=== PATIENT | male | born 1945 | race Caucasian/White ===

== ENCOUNTER 2019-12-22 20:06 | Observation (INO) ==
[2019-12-22] MEDS ORDERED: 0.9 % Sodium Chloride 1,000 ML IVC ONE (20:19)
[2019-12-22] MEDS ORDERED: 0.9 % Sodium Chloride 500 ML IVC ONE (20:28)
[2019-12-22] MEDS ORDERED: Ondansetron 4 MG/2 ML VIAL IVP ONE (20:29)
[2019-12-22 20:41] LABS: Basophils % 0.5 %; Eosinophils # 0.2 K/mcL (0.0-0.6); Eosinophils % 2.5 %; Hematocrit 33.8 % (37.5-50.1); Hemoglobin 10.7 g/dL (12.9-16.9); Immature Granulocytes % 0.3 % (0-4); Lymphocytes # 0.9 K/mcL (0.6-4.6); Lymphocytes % 11.7 %; Mean Corpuscular HGB Conc 31.7 g/dL (31.6-35.5); Mean Corpuscular Hemoglobin 31.5 pg (28.0-33.3); Mean Corpuscular Volume 99.4 fL (83.0-100.0); Mean Platelet Volume 11.7 fL (9.4-12.4); Monocytes # 0.8 K/mcL (0.0-1.3); Monocytes % 10.6 %; Neutrophils # 5.5 K/mcL (1.6-8.9); Platelet Count 151 K/mcL (140-400); Red Cell Distribution Width 13.4 % (11.5-14.5); Segmented Neutrophils % 74.4 %; White Blood Count 7.3 K/mcL (4.3-11.1)
[2019-12-22 21:03] LABS: BUN/Creatinine Ratio 21 (6-26); Blood Urea Nitrogen 21 mg/dL (8-23); Calcium 9.2 mg/dL (8.6-10.3); Carbon Dioxide 25 mEq/L (23-29); Chloride 106 mEq/L (98-107); Glucose 100 mg/dL (70-105); Osmolality,Calculated 287 (280-300); Potassium 4.4 mEq/L (3.5-5.1); Sodium 137 mEq/L (136-145); eGFR For African Americans > 60 (> 60); eGFR For Non-African Americans > 60 (> 60)
[2019-12-22 21:44] LABS: Bilirubin,Urine Negative (Negative); Blood,Urine Negative (Negative); Clarity,Urine Clear (Clear); Color,Urine Yellow (Yellow); Glucose,Urine (UA) Normal (Normal); Ketones,Urine Negative (Negative); Leukocyte Esterase,Urine Negative (Negative); Nitrite,Urine Negative (Negative); PH,Urine 6.5 pH Units (5.0-8.0); Protein,Urine Negative (Neg-Trace); Specific Gravity,Urine 1.022 (1.010-1.025); Urobilinogen,Urine Normal (Normal)
[2019-12-22] MEDS ORDERED: Aspirin 325 MG TABLET PO ONE (22:10)
[2019-12-22 22:15] LABS: INR 3.1; Prothrombin Time 35.2 Seconds (9.4-12.1)
[2019-12-23] MEDS ORDERED: Ondansetron ODT 4 MG TAB.RAPDIS SL PRN (00:40)
[2019-12-23] MEDS ORDERED: Naloxone 0.4 MG/ML INJ IVP PRN (00:40)
[2019-12-23] MEDS ORDERED: Acetaminophen 325 MG TABLET PO PRN (00:40)
[2019-12-23 02:12] LABS: Hemoglobin 10.4 g/dL (12.9-16.9); Mean Platelet Volume 11.3 fL (9.4-12.4); Red Cell Distribution Width 13.2 % (11.5-14.5)
[2019-12-23 02:14] LABS: Basophils % 0.2 %; Eosinophils # 0.2 K/mcL (0.0-0.6); Eosinophils % 2.2 %; Hematocrit 33.2 % (37.5-50.1); Immature Granulocytes % 0.5 % (0-4); Immature Platelets 5.8 % (1.1-6.1); Lymphocytes # 0.8 K/mcL (0.6-4.6); Mean Corpuscular HGB Conc 31.3 g/dL (31.6-35.5); Mean Corpuscular Hemoglobin 31.3 pg (28.0-33.3); Monocytes # 0.7 K/mcL (0.0-1.3); Monocytes % 8.5 %; Neutrophils # 6.6 K/mcL (1.6-8.9); Platelet Count 133 K/mcL (140-400); Red Blood Count 3.32 M/mcL (4.19-5.50); Segmented Neutrophils % 78.6 %; White Blood Count 8.4 K/mcL (4.3-11.1)
[2019-12-23 02:16] LABS: INR 3.5; Prothrombin Time 39.6 Seconds (9.4-12.1)
[2019-12-23 02:31] LABS: % Iron Saturation 9 % (20-55); BUN/Creatinine Ratio 21 (6-26); Blood Urea Nitrogen 20 mg/dL (8-23); Calcium 8.5 mg/dL (8.6-10.3); Carbon Dioxide 26 mEq/L (23-29); Chloride 106 mEq/L (98-107); Glucose 95 mg/dL (70-105); Iron 21 mcg/dL (65-175); Magnesium 2.1 mg/dL (1.6-2.6); Osmolality,Calculated 286 (280-300); Phosphorous 3.7 mg/dL (2.7-4.5); Potassium 4.4 mEq/L (3.5-5.1); Sodium 137 mEq/L (136-145); Transferrin 160 mg/dL (203-362); eGFR For African Americans > 60 (> 60); eGFR For Non-African Americans > 60 (> 60)
[2019-12-23] MEDS ORDERED: carvediloL 6.25 MG TABLET PO SCH (08:00)
[2019-12-23] MEDS: Aspirin 81 MG TAB.CHEW PO SCH (08:20)
[2019-12-23] MEDS: Spironolactone 25 MG TABLET PO SCH (08:20)
[2019-12-23] MEDS: FLUoxetine 20 MG CAPSULE PO SCH (08:20)
[2019-12-23] MEDS: Furosemide 40 MG/4 ML VIAL IVP SCH ×2 (15:21→21:55)
[2019-12-23] MEDS ORDERED: *HR* Warfarin 5 MG TABLET PO SCH (18:00)
[2019-12-23] MEDS ORDERED: Warfarin perPT PO PRN (18:00)
[2019-12-23] MEDS: carvediloL 6.25 MG TABLET PO SCH (21:55)
[2019-12-24 02:20] LABS: Basophils % 0.3 %; Eosinophils # 0.2 K/mcL (0.0-0.6); Eosinophils % 2.9 %; Hematocrit 37.1 % (37.5-50.1); Hemoglobin 11.7 g/dL (12.9-16.9); Immature Granulocytes % 0.3 % (0-4); Lymphocytes # 0.9 K/mcL (0.6-4.6); Lymphocytes % 11.9 %; Mean Corpuscular HGB Conc 31.5 g/dL (31.6-35.5); Mean Corpuscular Hemoglobin 31.4 pg (28.0-33.3); Mean Corpuscular Volume 99.5 fL (83.0-100.0); Mean Platelet Volume 11.5 fL (9.4-12.4); Monocytes # 0.8 K/mcL (0.0-1.3); Monocytes % 11.1 %; Neutrophils # 5.4 K/mcL (1.6-8.9); Platelet Count 141 K/mcL (140-400); Red Blood Count 3.73 M/mcL (4.19-5.50); Red Cell Distribution Width 13.1 % (11.5-14.5); Segmented Neutrophils % 73.5 %; White Blood Count 7.3 K/mcL (4.3-11.1)
[2019-12-24 02:26] LABS: INR 3.1; Prothrombin Time 34.9 Seconds (9.4-12.1)
[2019-12-24 02:41] LABS: BUN/Creatinine Ratio 24 (6-26); Blood Urea Nitrogen 23 mg/dL (8-23); Calcium 9.4 mg/dL (8.6-10.3); Carbon Dioxide 28 mEq/L (23-29); Chloride 102 mEq/L (98-107); Glucose 91 mg/dL (70-105); Osmolality,Calculated 289 (280-300); Sodium 138 mEq/L (136-145); eGFR For African Americans > 60 (> 60); eGFR For Non-African Americans > 60 (> 60)
[2019-12-24] MEDS: carvediloL 6.25 MG TABLET PO SCH (07:22)
[2019-12-24] MEDS: FLUoxetine 20 MG CAPSULE PO SCH (07:22)
[2019-12-24] MEDS: Spironolactone 25 MG TABLET PO SCH (07:22)
[2019-12-24] MEDS: Aspirin 81 MG TAB.CHEW PO SCH (07:23)
[2019-12-24] MEDS: Furosemide 40 MG/4 ML VIAL IVP SCH (07:23)
[2019-12-24 11:19] VITALS: BP 103/64
[2019-12-24] MEDS ORDERED: *HR* Warfarin 7.5 MG TABLET PO ONE (18:00)
[2019-12-25] MEDS ORDERED: Furosemide 20 MG TABLET PO SCH (09:00)
== END 2019-12-24 13:18 | disposition home or self-care (01) ==
LOC: 2ANU 20:06 → EMEROOARM 20:06 → SUATTDRO 22:27 → 2ANU 23:25
PROVIDERS: ADMIT Family Medicine; ATTEND Internal Medicine